=== PATIENT | male | born 1975 | race African-American/Black ===

== ENCOUNTER 2021-01-04 08:24 | Emergency (ER) | payer SELFPAY ==
[~2021-01-04] VITALS: Ht 182.9 cm; Wt 68.0 kg
[2021-01-04] MEDS ORDERED: DEXT 5%/0.9% NACL 1,000 ML IV ONE (10:00)
[2021-01-04] MEDS ORDERED: ACETAMINOPHEN 325MG TABLET PO ONE (10:00)
[2021-01-04] MEDS ORDERED: ONDANSETRON HCL 4MG/2ML INJ IV STA (10:18)
[2021-01-04 10:28] LABS: CHLORIDE 111 mEq/L (98-107)
[2021-01-04 10:29] LABS: BASOPHILS % 0.8 % (0.0-2.0); HEMATOCRIT. 41.4 % (42.0-52.0); HEMOGLOBIN. 14.3 g/dL (14.0-18.0); LYMPHOCYTES % 20.2 % (20.0-50.0); MEAN CORPUSCULAR HEMOGLOBIN 29.4 pg (28.0-32.0); MEAN PLATELET VOLUME 8.2 fl (7.4-10.4); MONOCYTES % 7.2 % (2.0-8.0); NEUTROPHILS % 71.8 % (40.0-76.0); PLATELET 227 x1000/uL (130-400); RED BLOOD CELL COUNT 4.88 mill/uL (4.7-6.1); RED CELL DISTRIBUTION WIDTH 15.1 % (11.6-14.6)
[2021-01-04] MEDS ORDERED: SODIUM CHLORIDE 0.9% 1,000 ML IV ONE (10:30)
[2021-01-04 10:32] LABS: CLARITY URINE CLEAR (CLEAR); COLOR URINE YELLOW (YELLOW); KETONES URINE NEGATIVE (NEGATIVE); LEUKOCYTE ESTERASE URINE NEGATIVE (NEGATIVE); NITRITE URINE NEGATIVE (NEGATIVE); OCCULT BLOOD URINE NEGATIVE (NEGATIVE); PROTEIN URINE NEGATIVE (NEGATIVE); UROBILINOGEN URINE 0.2 E.U./dL (0.2-1.0)
[2021-01-04 10:36] LABS: INR 1.1; PROTHROMBIN TIME 12.1 sec (9.6-11.0)
[2021-01-04 11:51] VITALS: BP 109/64
== END 2021-01-04 11:56 | disposition home or self-care (01) ==
LOC: ER 08:24
DX: S43.025A Posterior dislocation of left humerus, initial encounter (principal); R10.84 Generalized abdominal pain; R11.10 Vomiting, unspecified; R03.0 Elevated blood-pressure reading, without diagnosis of hypertension; Y93.84 Activity, sleeping; Y92.013 Bedroom of single-family (private) house as the place of occurrence of the external cause
CPT/HCPCS: 36415; 73030; 80053; 81003; 83690; 85025; 85610; 96361; 96374; 99284; J2405; J7030; J7042; L3670